=== PATIENT | female | born 1950 | race Caucasian/White ===

== ENCOUNTER 2025-04-05 13:26 | Emergency (ER) | payer MEDICAID, OTHER ==
[~2025-04-05] VITALS: Ht 170.2 cm; Wt 68.0 kg
[2025-04-05 13:29] VITALS: TEMP 98.3; O2SAT 98
[2025-04-05 14:35] LABS: BASOPHILS % 1.3 % (0.0-2.0); EOSINOPHILS % 5.0 % (0.0-5.0); HEMATOCRIT. 40.0 % (36.0-48.0); HEMOGLOBIN. 13.0 g/dL (12.0-16.0); LYMPHOCYTES % 13.7 % (20.0-50.0); MEAN PLATELET VOLUME 8.7 fl (7.4-10.4); MONOCYTES % 12.6 % (2.0-8.0); NEUTROPHILS % 67.4 % (40.0-76.0); PLATELET 180 x1000/uL (130-400); RED BLOOD CELL COUNT 4.12 mill/uL (4.2-5.4); RED CELL DISTRIBUTION WIDTH 15.4 % (11.6-14.6)
[2025-04-05 14:46] LABS: CREATININE 0.8 mg/dL (0.6-1.0); UREA NITROGEN BLOOD 7 mg/dL (9-23)
[2025-04-05 15:45] VITALS: BP 181/97; PULSE 78; RESP 16; O2SAT 98
== END 2025-04-05 16:14 | disposition home or self-care (01) ==
LOC: ER 13:26 → CANBEDREQ 15:51 → ER 16:14
DX: I10 Essential (primary) hypertension (principal)
CPT/HCPCS: 36415; 80048; 83735; 85025; 93005; 99283